=== PATIENT | male | born 2000 | race Caucasian/White ===

== ENCOUNTER 2019-07-13 23:34 | Emergency (ER) | payer SELFPAY ==
[~2019-07-13] VITALS: Ht 177.8 cm; Wt 92.7 kg
[2019-07-13 23:48] VITALS: Ht 177.8 cm; Wt 92.7 kg
[2019-07-14 02:58] VITALS: BP 137/85
== END 2019-07-14 02:58 | disposition home or self-care (01) ==
LOC: ED 23:34
DX: R04.0 Epistaxis (principal)